=== PATIENT | male | born 1950 ===

== ENCOUNTER 2020-05-19 13:21 | Emergency (ER) | payer MEDICAID, MEDICARE ==
[~2020-05-19] VITALS: Ht 188 cm; Wt 74.5 kg
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
[2020-05-19 14:00] LABS: BASO # 0.1 x10^3/uL (0.0-0.2); BASO % 1 % (0-3); EOS # 0.3 x10^3/uL (0.0-0.7); EOS % 4 % (0-3); HEMATOCRIT 31.6 % (39.0-53.0); HEMOGLOBIN 10.6 g/dL (13.0-17.5); LYMPH # 1.6 x10^3/uL (1.0-4.8); LYMPH % 21 % (24-48); MEAN CORPUSCULAR HEMOGLOBIN 33 pg (25-35); MEAN CORPUSCULAR HGB CONC 34 g/dL (31-37); MEAN CORPUSCULAR VOLUME 97 fL (79-100); MONO # 0.9 x10^3/uL (0.0-1.1); MONO % 12 % (0-9); NEUT # 4.6 x10^3uL (1.8-7.7); NEUT % 61 % (31-73); PLATELET COUNT 473 x10^3/uL (140-400); RED BLOOD COUNT 3.27 x10^6/uL (4.30-5.70); WHITE BLOOD COUNT 7.4 x10^3/uL (4.0-11.0)
--- NOTE | 2020-05-19 14:09 | RAD ---
Examination: XR CHEST 1V History: Reason: agitation / Spl. Instructions: / History: Comparison/Correlation: 05/06/2010 Portable Chest X-ray Exam Findings: Frontal views of the chest were obtained. Heart size and pulmonary vessels are normal. Biap ical pleural thickening is present. Calcified granulomas are present. No focal infiltrate. Minimal ri ght costophrenic angle blunting is present. Impression: Minimal right costophrenic angle blunting which may represent pleural thickening or pleural effusion. No focal infiltrate. Electronically signed by: Sin Mckinney MD (05/19/2020 2:07 PM) [id number]
[2020-05-19 14:10] LABS: CALCIUM 8.6 mg/dL (8.5-10.1); CREATININE 0.9 mg/dL (0.7-1.3); GFR 83.9; POTASSIUM 3.7 mmol/L (3.5-5.1)
[2020-05-19 14:13] VITALS: BP 110/50
[2020-05-19 14:15] LABS: ALBUMIN 2.9 g/dL (3.4-5.0); ALBUMIN/GLOBULIN RATIO 0.7 (1.0-1.7); MAGNESIUM 2.4 mg/dL (1.8-2.4); TOTAL BILIRUBIN 0.1 mg/dL (0.2-1.0); TOTAL PROTEIN 7.1 g/dL (6.4-8.2)
[2020-05-19 14:17] LABS: SALIC < 2.8 mg/dL (2.8-20.0)
[2020-05-19 14:18] LABS: ACETAMIN < 2.0 mcg/mL (10-30)
--- NOTE | 2020-05-19 14:30 | RAD ---
Examination: CT HEAD AND C-SPINE WO History: fall? /Pain Comparison/Correlation: 05/06/2010 CT head without contrast Findings: Axial images of the head and cervical spine were obtained without contrast. Sagittal and co renetta reformatted images were provided. Atrophy is present. Chronic ischemic changes of the white matter noted. Mild ventriculomegaly presuma tejinder related to volume loss is present. Motion limits evaluation at the level of C1 and C2. Atlantoaxial joint degenerative changes present. Moderate C2-3 disc space narrowing is present. Disc osteophyte complex at C3-4, C4-5, C5-6 is present . Moderate C4-5 disc space narrowing. Significant C5-6 and C6-7 disc space narrowing. Bony encroachme nt on neural foramina is evident on the left from C4 from C3 to C7 with marked neural foraminal narro wing. Mild bony encroachment is present on the right at C6-7 with mild neural foraminal narrowing. Al ignment is grossly unremarkable. Emphysematous involvement of the upper lung gagnon noted. Biapical pleural thickening and scarring is present. At the left lung apex, there in particular is a density which may represent scarring althou gh neoplastic etiology is also a consideration. As best seen on axial image 84 of series 4 and mcdaniels l image 86 of series 5. This measures 1.2 cm x 0.8 cm x 1.5 cm. The lateral left upper lung field on axial image 105 of series 4 there is a 0.7 cm x 0.6 cm noncalcified nodule present. Impression: No intracranial hemorrhage. Evaluation is limited at C1-2 due to motion. No fracture is identified. Repeat imaging can be more de finitive assessment at the C1-2 level. Left upper lung processes. Left upper lung irregular process which may represent scarring or neoplast ic etiology is present. Nodule at the left upper lung. Dedicated CT chest on a nonemergent basis is r ecommended for more complete assessment of the lung gagnon. Discussed with referring ED physician on 05/19/2020 at 2:25 PM. Electronically signed by: Sin Mckinney MD (05/19/2020 2:27 PM) [id number]
[2020-05-19 15:00] LABS: BARBITURATES NEG (NEG); BENZODIAZEPINES NEG (NEG); CANNABINOIDS NEG (NEG); COCAINE NEG (NEG); METHADONE NEG (NEG); OPIATES POS (NEG); PHENCYCLIDINE NEG (NEG)
[2020-05-19 15:01] LABS: AMPHETAMINE/METHAMPHETAMINE NEG (NEG)
[2020-05-19 15:12] LABS: BILIRUBIN,URINE NEG (NEG); CLARITY,URINE CLEAR; COLOR,URINE YELLOW; GLUCOSE,URINE NEG (NEG); NITRITE,URINE NEG (NEG); UROBILINOGEN,URINE 0.2 mg/dL (0.2 mg/dL); WBC,URINE OCC /HPF (0-4)
[2020-05-19 15:13] LABS: BACTERIA,URINE FEW /HPF (0-FEW); SQUAMOUS EPITHELIAL CELL,UR OCC /LPF
== END 2020-05-19 16:12 | disposition home or self-care (01) ==
LOC: ER 13:21
DX: R91.1 Solitary pulmonary nodule (principal); F03.90 Unspecified dementia, unspecified severity, without behavioral disturbance, psychotic disturbance, mood disturbance, and anxiety; I10 Essential (primary) hypertension; Z20.828 Contact with and (suspected) exposure to other viral communicable diseases; W18.39XA Other fall on same level, initial encounter; Y93.89 Activity, other specified; Y92.128 Other place in nursing home as the place of occurrence of the external cause; Y99.8 Other external cause status
CPT/HCPCS: 36415; 70450; 71045; 72125; 80053; 80307; 80329; 81001; 83735; 84484; 85025; 99285; C9803; U0003; G0480